=== PATIENT | male | born 1995 | race Caucasian/White ===

== ENCOUNTER 2017-09-25 16:14 | Emergency (ER) | payer BC ==
[2017-09-25 16:25] VITALS: BP 150/82; BMI 34.0
[2017-09-25] MEDS ORDERED: ACETAMINOPHEN INJECTION 100 ML IVPB ONE (17:06)
--- NOTE | 2017-09-25 17:26 | PDOC ---
History of Present Illness - General History Source: Patient Exam Limitations: No Limitations - History of Present Illness Initial Comments: 09/25/17 17:32 The patient is a 21 year old male, with no significant past medical history, who presents to the emergency department with cold-like symptoms for approximately 3 days. Patient reports he first developed a headache 3 days ago. Yesterday, patient reports associated body aches and dizziness. However, as of this morning patient endorses subjective fever, tonsillar swelling, and sore throat. He denies any associated chills, cough, runny nose, nasal congestion, or ear aches. He denies any chest pain, shortness of breath, diaphoresis, or palpitations. He denies any abdominal pain, nausea, or vomiting. He denies any changes in bowel or bladder habits. 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 He denies any recent travel. Patient states he has not taken anything for his symptoms. Patient states he did not receive his flu shot this year. Allergies:Sulfamethoxazole, trimethoprim Past Surgical History: None reported Social History: Social ETOH use. Non smoker. No recreational drug use. <Lina Davila - Last Filed: 09/25/17 18:23> <Roe Saez - Last Filed: 09/29/17 07:47> - General Chief Complaint: Cold Symptoms Stated Complaint: FLU Time Seen by Provider: 09/25/17 17:19 Past History <Lina Davila - Last Filed: 09/25/17 18:23> - Past Medical History Asthma: No COPD: No Diabetes: No HTN: No - Immunization History Td Vaccination: Yes Immunization Up to Date: Yes - Suicide/Smoking/Psychosocial Hx Smoking Status: No Smoking History: Never smoked Have you smoked in the past 12 months: No Number of Cigarettes Smoked Daily: 0 Information on smoking cessation initiated: No Hx Alcohol Use: No Drug/Substance Use Hx: No Substance Use Type: None Hx Substance Use Treatment: No <Roe Saez - Last Filed: 09/29/17 07:47> - Past Medical History Allergies/Adverse Reactions: Allergies Allergy/AdvReac Type Severity Reaction Status Date / Time sulfamethoxazole Allergy Mild Hives Verified 09/25/17 16:21 [From Bactrim] trimethoprim [From Bactrim] Allergy Mild Hives Verified 09/25/17 16:21 Home Medications: Ambulatory Orders Ibuprofen 800 mg PO TID PRN #20 tablet 09/25/17 Oseltamivir Phosphate [Tamiflu] 75 mg PO BID #10 capsule 09/25/17 Review of Systems - Review of Systems Able to Perform ROS?: Yes Comments:: 09/25/17 17:32 CONSTITUTIONAL: Present: +fever Absent: no chills, no fatigue EYES: Absent: visual changes ENT: Present: sore throat, tonsillar edema Absent: ear pain CARDIOVASCULAR: Absent: chest pain, no palpitations RESPIRATORY: Absent: cough, no SOB GI: Absent: abdominal pain, no nausea, no vomiting, no constipation, no diarrhea GENITOURINARY: Absent: dysuria, no frequency, no hematuria MUSKULOSKELETAL: Present: diffuse joint aches Absent: back pain, no myalgia SKIN: Absent: rash NEURO: Present: headache, dizziness <Davila,Giomilsy - Last Filed: 09/25/17 18:23> *Physical Exam - Vital Signs Last Vital Signs Temp Pulse Resp BP Pulse Ox 102.6 F H 137 H 20 150/82 98 09/25/17 16:15 09/25/17 16:15 09/25/17 16:15 09/25/17 16:15 09/25/17 16:15 - Physical Exam Comments: 09/25/17 17:33 GENERAL: Well-appearing, well-nourished. No apparent distress. Febrile 102.6. RR 20, and O2 sat 98% on room air HEENT: Normocephalic, atraumatic. PERRL, EOM intact. Mild pharyngeal injection, without swelling, exudates or mass NECK: Supple. Without nodes. CARDIOVASCULAR: Tachycardic to 137. Normal S1, S2. Regular rhythm. PULMONARY: Clear to auscultation bilaterally. No rales, ronchi, or crackles ABDOMEN: Soft, non-distended, non-tender. EXTREMITIES: Normal ROM in all four extremities. No gross deformities. SKIN: Warm, dry. Mild flushing. No rash. NEUROLOGICAL: No focal neurological deficits. <Davila,Giomilsy - Last Filed: 09/25/17 18:23> - Vital Signs Last Vital Signs Temp Pulse Resp BP Pulse Ox 102.6 F H 137 H 20 150/82 98 09/25/17 16:15 09/25/17 16:15 09/25/17 16:15 09/25/17 16:15 09/25/17 16:15 <Roe Saez - Last Filed: 09/29/17 07:47> ED Treatment Course - Medications Given in the ED: ED Medications Discontinued Medications Generic Name Dose Route Start Last Admin Trade Name Kevon PRN Reason Stop Dose Admin Acetaminophen 1,000 mg 09/25/17 17:28 09/25/17 17:30 Ofirmev Injection - IVPB 09/25/17 17:29 1,000 mg ONCE ONE Administration <Lina Davila - Last Filed: 09/25/17 18:23> Medical Decision Making - Medical Decision Making 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 No abdominal pain nausea or vomiting. No chest pain, shortness of breath. Patient is much improved after intravenous fluids. Tachycardia has resolved. He is afebrile. His fully ambulatory and completely comfortable upon discharge to follow-up as needed. <Roe Saez - Last Filed: 09/29/17 07:47> *DC/Admit/Observation/Transfer - Attestations Scribe Attestion: 09/25/17 17:42 Documentation prepared by Lina Davila, acting as bacteriologist medical for Roe Craig MD. <Lina Davila - Last Filed: 09/25/17 18:23> - Discharge Dispostion Admit: No <Roe Saez - Last Filed: 09/29/17 07:47> Diagnosis at time of Disposition: Viral syndrome - Discharge Dispostion Disposition: HOME Condition at time of disposition: Improved - Prescriptions Prescriptions: Ibuprofen 800 mg PO TID PRN #20 tablet PRN Reason: pain or fever Oseltamivir Phosphate [Tamiflu] 75 mg PO BID #10 capsule - Patient Instructions Printed Discharge Instructions: DI for Viral Syndrome, DI for Fever (Symptom) - - Adult - Post Discharge Activity Forms/Work/School Notes: Back to Work
[2017-09-25] MEDS ORDERED: ACETAMINOPHEN 1000 MG/100 ML VIAL (NON FORMULARY) IVPB ONE (17:28)
[2017-09-25] MEDS ORDERED: SODIUM CHLORIDE 1,000 ML IV STA (17:28)
[2017-09-25 17:52] VITALS: PULSE 110; TEMP 99.2
== END 2017-09-25 18:22 | disposition home or self-care (01) ==
LOC: FER 16:14
PROC: 3E033NZ Introduction of Analgesics, Hypnotics, Sedatives into Peripheral Vein, Percutaneous Approach (ICD-10-PCS; principal; 2017-09-25)
PROC: 3E0337Z Introduction of Electrolytic and Water Balance Substance into Peripheral Vein, Percutaneous Approach (ICD-10-PCS; 2017-09-25)
DX: B34.9 Viral infection, unspecified (principal)
CPT/HCPCS: 99281-25